=== PATIENT | male | born 1945 | race Caucasian/White ===

== ENCOUNTER → 2024-08-12 11:49 | Outpatient (REF) | payer MEDICARE, SELFPAY | LOC: RAD 11:49 | PROVIDERS: ATTENDING PHYSICIAN Surgery Vascular Surgery; FAMILY PHYSICIAN Family Medicine | DX: I71.42 Juxtarenal abdominal aortic aneurysm, without rupture (principal) | CPT/HCPCS: 74174; Q9967 ==

== ENCOUNTER 2024-12-23 08:35 | Inpatient (IN) | payer MEDICARE, SELFPAY ==
[2024-12-16 09:19] VITALS: BMI 29.4
[2024-12-16 10:19] LABS: Hematocrit 40.2 % (39.0-52.0); Hemoglobin 13.3 g/dL (13.0-18.0); Mean Corp Hgb Conc. 33.1 g/dL (33.0-37.0); Mean Corpuscular Volume 96.9 fL (80.0-94.0); Nucleated Red Blood Cells % 0 % (-); Platelet Count 109 10^3/uL (130-400); Red Cell Dist. Width 14.4 % (11.5-14.5)
[2024-12-16 10:32] LABS: INR 1.05; PT 14.0 Sec (11.4-14.6)
[2024-12-16 10:33] LABS: APTT 28.0 Sec (23.4-35.0)
[2024-12-16 11:15] LABS: Blood Urea Nitrogen 19 mg/dl (9-20); Calcium 9.6 mg/dl (8.4-10.2); Carbon Dioxide 34 mmol/L (22-30); Chloride 99 mmol/L (98-107); Estimated Creatinine Clearance 81 ml/min; Glucose 112 mg/dl (70-99); Potassium 3.6 mmol/L (3.5-5.1); Sodium 138 mmol/L (135-145); eGFR > 60.00
--- NOTE | 2024-12-17 08:46 | PTCARENOTE ---
Patients 12/16 WBC 2.5- Nichelle @ Dr. Chaudhary office notified
[2024-12-23] VITALS (10 sets, daily range): BP systolic 134–161; BP diastolic 87–107; BMI 28.7
--- NOTE | 2024-12-23 09:27 | HP.FOC2 ---
Focused History & Physical
Chief Complaint
HPI:
Chief Complaint: AAA
HPI / Indication for Planned Procedure:
This is an 79-year-old male with significant past medical history for lung cancer, juxtarenal abdominal aortic aneurysm, hypertension, PVCs, atrial fibrillation, pulmonary hypertension, esophageal reflux, diverticulosis, and prostate cancer who
presents today for scheduled fenestrated endovascular aortic aneurysm repair with Dr. Agus Jaime III. Patient denies recent illness, trauma, or hospitalization. Denies chest pain, abdominal pain, nausea, vomiting, fever, chills, shortness of
breath, and loose stools. Patient was last seen in our office on 09/11/2024 for preop evaluation rejection abdominal aortic aneurysm, he was seen by cardiology on and received cardiac clearance. Procedure was delayed due to insurance
approval. He reports he is at his baseline health and offers no complaints.
Relevant Past Medical History: Other (lung cancer, juxtarenal abdominal aortic aneurysm, hypertension, PVCs, atrial fibrillation, pulmonary hypertension, esophageal reflux, diverticulosis, and prostate cancer)
Relevant Social History: Tobacco Use (Former smoker)
Relevant Past Surgical History: Positive for (Prostatectomy 2001, left TKR, colon surgery with reversal of colostomy 2003)
Review of Systems
Review of Pertinent Systems: All Systems Negative
Medication
See Medication form for detailed medications: Yes
Medication List (including Herbals & OTC):
acetaminophen 500 mg tablet (Tylenol Extra Strength) 500 - 1,000 mg PO Q6H PRN pain 12/11/24
apixaban 5 mg tablet (Eliquis) 5 mg PO BID 12/11/24
calcium 600 mg (as carbonate)-vitamin D3 10 mcg (400 unit) tablet (Calcium 600 + D(3)) 2 tab PO DAILY 12/11/24
digoxin 125 mcg (0.125 mg) tablet 125 mcg PO DAILY 12/11/24
diltiazem HCl 90 mg tablet 45 mg PO BID 12/11/24
diphenhydramine HCl 25 mg capsule (Benadryl) 50 mg PO DIRECTED PRN pre op 12/11/24
ezetimibe 10 mg tablet 10 mg PO DAILY 12/11/24
hydrochlorothiazide 25 mg tablet 25 mg PO DAILY 12/11/24
leuprolide acetate (6 month) 45 mg (6 month) subcutaneous syringe (Eligard) 45 mg SC [id number] 12/11/24
losartan 50 mg tablet 50 mg PO DAILY 12/11/24
methylprednisolone 32 mg tablet 32 mg PO DIRECTED pre op 12/11/24
Medications Reviewed: Yes
Allergies and Reactions
Patient has Allergies: Yes
Noted Allergies and Reactions:
Allergy/AdvReac Type Severity Reaction Status Date / Time
Iodinated Contrast Media Allergy Hives Verified 12/11/24 15:39
Penicillins Allergy Hives Verified 12/11/24 15:39
shellfish derived Allergy Hives Verified 12/11/24 15:39
'Pain medicine' Allergy Hives Uncoded 12/11/24 15:39
Pertinent Physical Exam
All Other Systems: Negative
Head/Neck: Normal
Lungs: Other (Bilateral upper lobe clear to auscultation, left lower lobe clear to auscultation, right lower lobe with inspiratory wheeze)
Heart: Normal (Irregular rhythm, no murmurs)
Abdomen: Normal (Nontender nondistended)
Extremities: Normal (Bilateral radial pulse +2 palpable, right DP +1 palpable, left DP +2 palpable)
Neurological: Normal
Diagnosis / Assessment
Assessment: 79-year-old male with juxtarenal abdominal aortic aneurysm
Plan / Procedure
Plan: Will proceed with scheduled fenestrated endovascular aortic aneurysm repair as scheduled with Dr. Agus Jaime III.
Anesthesia/Sedation to be done by Anesthesia Provider: Yes
[2024-12-23] MEDS: BACTROBAN NASAL 1 GRAM NASAL (10:06)
[2024-12-23] MEDS: NSS 500 IV (10:07)
[2024-12-23] MEDS: PERIDEX 0.12% ORAL RINSE 15 ML PO (10:07)
[2024-12-23] MEDS: VANCOCIN 530 MG IV (10:13)
--- NOTE | 2024-12-23 11:53 | W.SUR.PREOP ---
Pre-Operative Surgical Note
-
I have examined this patient prior to the performance of the scheduled procedure.
The patient's condition is unchanged from the time of the current History and
Physical and the patient is able to undergo the scheduled procedure.
[2024-12-23 12:29] LABS: ACT-LR - POC 269 Seconds (116-155)
--- NOTE | 2024-12-23 13:39 | CON.INTV ---
Consultation
Consultation Request
Date/Time Consultation Requested: 12/23/2024-2 PM
Date/Time Consultation Performed: 12/23/2024-2:30 PM
Requesting Provider: Vascular surgery
Performing Provider: Dr. Blake
Reason for Consultation: Postop critical care management
Medical History
-
Chief Complaint: PAD
History of Present Illness:
79-year-old former smoking male with a history of prostate cancer/prostatectomy, colon surgery/colostomy reversal, lung cancer, AAA, hypertension, atrial fibrillation, pulm hypertension, GERD, diverticulosis who had aortic aneurysm and underwent
fenestrated endovascular aortic aneurysm repair-felt dyeing machine tender consulted for postoperative critical care management 12/23/2024. Patient is seen postoperatively in the surgical intensive care unit. He is lying flat without complaints of shortness of
breath, chest pain, chest congestion, productive cough, abdominal pain offers no complaints of nausea, focal weakness and has good peripheral pulses.
Past Medical History
Past Medical History: None (Former smoker. Prostate cancer/prostatectomy 2001. Lung cancer. Abdominal aortic aneurysm. Hypertension. PVCs. Atrial fibrillation. Pulm hypertension. GERD. Diverticulosis. Colon surgery/reversal colostomy 2003.
Left TKR)
Social History
Tobacco: Former Smoker
Drug: None
Living: With Family
Occupational Exposures: No known asbestos exposure
Environmental Exposures: No known tuberculosis exposure
Family History
Family History: Reviewed & Not Pertinent
Allergies / Home Medications
Allergies
Allergy/AdvReac Type Severity Reaction Status Date / Time
Iodinated Contrast Media Allergy Hives Verified 12/11/24 15:39
Penicillins Allergy Hives Verified 12/11/24 15:39
shellfish derived Allergy Hives Verified 12/11/24 15:39
'Pain medicine' Allergy Hives Uncoded 12/11/24 15:39
Home Medications
�Medication �Instructions �Recorded �Confirmed �Last Taken �Type
acetaminophen 500 mg tablet 500 - 1,000 mg PO Q6H PRN pain 12/11/24 12/23/24 12/22/24 15:00 History
(Tylenol Extra Strength)
apixaban 5 mg tablet (Eliquis) 5 mg PO BID 12/11/24 12/23/24 12/19/24 18:00 History
calcium 600 mg (as 2 tab PO DAILY 12/11/24 12/23/24 12/16/24 08:00 History
carbonate)-vitamin D3 10 mcg (400
unit) tablet (Calcium 600 + D(3))
digoxin 125 mcg (0.125 mg) tablet 125 mcg PO DAILY 12/11/24 12/23/24 12/23/24 06:00 History
diltiazem HCl 90 mg tablet 45 mg PO BID 12/11/24 12/23/24 12/23/24 06:00 History
diphenhydramine HCl 25 mg capsule 50 mg PO DIRECTED PRN pre op 12/11/24 12/23/24 12/23/24 10:13 History
(Benadryl)
ezetimibe 10 mg tablet 10 mg PO DAILY 12/11/24 12/23/24 12/22/24 08:00 History
hydrochlorothiazide 25 mg tablet 25 mg PO DAILY 12/11/24 12/23/24 12/22/24 08:00 History
leuprolide acetate (6 month) 45 mg 45 mg SC [id number] 12/11/24 09/19/24 08:00 History
(6 month) subcutaneous syringe
(Eligard)
losartan 50 mg tablet 50 mg PO DAILY 12/11/24 12/23/24 12/22/24 08:00 History
methylprednisolone 32 mg tablet 32 mg PO DIRECTED pre op 12/11/24 12/23/24 12/23/24 07:45 History
Review of Systems
-
Unable to Obtain full review of systems at this time due to: Other (Per HPI)
Vitals / Labs / Diagnostic Testing
Vital Signs
Temp Pulse Resp BP Pulse Ox
97.3 F 91 22 155/107 95
12/23/24 10:20 12/23/24 10:30 12/23/24 10:30 12/23/24 10:26 12/23/24 10:30
Lab Data
12/16/24 09:27
12/16/24 09:27
Diagnostic Testing:
Physical Exam
-
Exam:
Well-nourished and well-developed in no apparent distress
HEENT-atraumatic, normocephalic
Neck-supple, no JVD, no bruit
Heart-regular rate and rhythm-no murmurs, rubs or gallops
Chest-clear to auscultation, no wheezes, crackles
Back-no tenderness
Abdomen-soft, nontender, nondistended, no hepatosplenomegaly
Extremities-no cyanosis, clubbing, edema and good peripheral pulses
Integument-intact, no rashes, lesions or ecchymosis
Neurology-alert and oriented, nonfocal motor and sensory exam
Assessment
-
79-year-old former smoking male with a history of prostate cancer/prostatectomy, colon surgery/colostomy reversal, lung cancer, AAA, hypertension, atrial fibrillation, pulm hypertension, GERD, diverticulosis who had aortic aneurysm and underwent
fenestrated endovascular aortic aneurysm repair-felt dyeing machine tender consulted for postoperative critical care management 12/23/2024.
AAA status post FEVAR-12/23/2024-Dr. Jaime
Mild leukopenia-WBCs 2.5
Mild hyperglycemia
Conditions present prior to admission:
Former smoker.
Prostate cancer/prostatectomy 2001.
History of lung cancer.
Abdominal aortic aneurysm.
Hypertension.
PVCs.
Atrial fibrillation.
Pulm hypertension.
GERD.
Diverticulosis.
Colon surgery/reversal colostomy 2003. Left TKR
Plan
Postoperative surgical intensive care unit monitoring
Supplemental oxygen as needed
Incentive spirometry
Aspiration precautions
Nebulizers if needed-currently not bronchospastic
Neuro and vascular checks per protocol
Monitor blood pressure/perfusion pressures and pulses closely
Pressors if needed
Vascular surgery following-correspondence and operative notes reviewed
DVT prophylaxis-on subcu heparin
Early nutrition
Early mobilization
Critical care statement: A total of 55 minutes of critical care time was provided for this patient today. This includes management of unstable vital signs, evaluation of the patient at bedside, reviewing the patient's pertinent medical records
including radiographs, microbiology, laboratory evaluations, and discussion with primary team, consultants, pharmacy, nutrition, physical therapy, case management, charge nurse, critical care nursing, and respiratory therapy.
Diagnostic data:
Chest x-ray 06/10/2008-NAD
Chest x-ray 11/09/2024-NAD, mild hyperinflation
Data Reviewed
-
EKG: Report reviewed by me
Radiology: Report reviewed by me
CT Scan: Report reviewed by me
Ultrasound: Report reviewed by me
Labs: Labs reviewed by me and Discussed with Physician
Old Records: Requested
Critical Care Time (in minutes): 55
[2024-12-23 13:40] LABS: ACT-LR - POC 247 Seconds (116-155)
[2024-12-23 14:42] LABS: ACT-LR - POC 265 Seconds (116-155)
[2024-12-23 14:58] LABS: B.E. - POC 1.3 mmol/L; Glucose - POC 148 mg/dl (70-99); HCO3 - POC 26 mmol/L (21-28); Hematocrit - POC 29 % PCV (42-52); Hemodilution- POC Yes; Hemoglobin Calculated - POC 10.0; Ionized Calcium - POC 1.12 mmol/L (1.15-1.33); Lactate - POC 0.79 mmol/L (0.36-0.75); O2 Saturation %Calculated-POC 99.7 % (94-98); PCO2 - POC 42 mmHg (35-48); PO2 - POC 209 mmHg (83-108); Potassium - POC 3.5 mmol/L (3.5-5.1); Sodium - POC 141 mmol/L (136-145); Specimen Type - POC Arterial; pH - POC 7.40 (7.35-7.45)
--- NOTE | 2024-12-23 15:35 | W.SUR.POST ---
Surgical Immediate Post Op
Note
Pre Op Diagnosis: Abdominal aortic aneurysm
Post Op Diagnosis: Abdominal aortic aneurysm
Procedure Performed: Fenestrated endovascular aortic aneurysm repair
Primary Surgeon: Agus Jaime MD
Secondary Surgeons: Raj Paulino MD PhD
Anesthesia: General - per anesthesia
Estimated Blood Loss: 200 cc
Fluids: Per anesthesia
Drains/Shunts: None
Specimens/Cultures: None
Doppler/Duplex/Angio (Y/N): Angio
Complications: None
Operative Findings: Bilateral groin access and FEVAR with left iliac branched stent and right common iliac stent with bilateral renal stents (extended on right).
[2024-12-23 15:48] LABS: Hematocrit 33.4 % (39.0-52.0); Hemoglobin 11.3 g/dL (13.0-18.0); Mean Corp Hgb Conc. 33.8 g/dL (33.0-37.0); Mean Corpuscular Volume 96.0 fL (80.0-94.0); Red Cell Dist. Width 14.3 % (11.5-14.5)
[2024-12-23] MEDS: PLAVIX 300 MG PO (15:53)
[2024-12-23 15:56] LABS: Blood Urea Nitrogen 22 mg/dl (9-20); Calcium 8.2 mg/dl (8.4-10.2); Carbon Dioxide 28 mmol/L (22-30); Chloride 104 mmol/L (98-107); Estimated Creatinine Clearance 106 ml/min; Glucose 152 mg/dl (70-99); Potassium 3.9 mmol/L (3.5-5.1); Sodium 135 mmol/L (135-145); eGFR > 60.00
[2024-12-23 16:28] LABS: Platelet Count 78 10^3/uL (130-400)
[2024-12-23] MEDS: CARDENE 200 IV (16:37)
[2024-12-23] MEDS: NSS 1000 IV (16:37)
[2024-12-23] MEDS: TYLENOL 650 MG PO (17:18)
[2024-12-23] MEDS: CARDIZEM 45 MG PO (17:22)
--- NOTE | 2024-12-23 17:35 | PTCARENOTE ---
Received pt from PACU s/p FEVAR. Assessment as noted. HTN noted above parameters. Cardene gtt infusing. Bilat groin access sites closed with derm glue, soft to palpation, Bilat petal pulses present to palp. C/O pain 10/10 to right thigh but only
will take tylenol at this time. NSS at 80cc/hr. Oriented to room, and daughter at bedside.
[2024-12-23] MEDS: DILAUDID 0.5 MG IV (18:12)
[2024-12-23] MEDS: ROXICODONE 5 MG PO (19:28)
--- NOTE | 2024-12-23 20:00 | PTCARENOTE ---
Resumed care of pt this evening. Received pt on cardene gtt infusing at 5mg/hr via left peripheral IV site. Neurological and neurovascular checks performed w/ dayshift RN and were unchanged from previous assessment. Pt can move all 4 extremities,
denies numbness/tingling, has adequate cap refill, and lower extremities are warm upon palpation. Surgical sites, B/L groin, is SERGIO w/ surgical adhesive present. Surrounding skin of surgical sites have some mild ecchymosis otherwise C/D/I. No signs
of hematoma formation observed by this RN.
--- NOTE | 2024-12-23 20:43 | OR.RPT ---
Operative Report
Operative Report
DATE OF OPERATION: 12/23/2024
Pre Op Diagnosis:
1. Juxtarenal abdominal aortic aneurysm
2. Common iliac artery aneurysms
Post Op Diagnosis:
1. Juxtarenal abdominal aortic aneurysm
2. Common iliac artery aneurysms
Procedure:
1. Percutaneous fenestrated aortic stent graft repair of juxtarenal abdominal aortic aneurysm:
[facility] P-2-32-109, scallop fenestration for SMA, bilateral renal fenestrations
[facility] D- 12 -28-76 distal main body
ZSLE 24-90 RIGHT iliac extension
ZSLE 16-90 LEFT iliac bridge extension to ZBIS device
2. Repair of left common iliac artery aneurysm using [employer] ZBIS device:
DRVV-45-40-US (8 mm x 38 mm iCast into left internal iliac artery)
3. Bilateral renal artery stenting for fenestrated stent graft repair (6 mm x 38 mm iCAST left renal artery; overlapping 7 mm x 22 mm iCAST right renal artery, post-dilated proximal bilaterally to 10 mm)
3. Ultrasound-guided percutaneous femoral access, bilateral
4. Bilateral Proglide closure of femoral artery access
Surgeon: Agus Jaime III, MD
Feed Inspection Supervisor: Raj Paulino MD PhD PGY-7
Anesthesia: General
Complications: None
History and Indications for Procedure: Large juxtarenal abdominal aortic aneurysm with common iliac artery aneurysms.
Procedure in Detail: Dae Schaefer was correctly identified and placed supine on the operating table. After adequate induction of anesthesia the abdomen, pelvis and bilateral groins were positioned, prepped and draped in the usual sterile fashion.
Preoperative antibiotics were administered. A timeout procedure was performed with the nursing and anesthesia staff confirming the patient�s identity as well as the nature and laterality of the procedure.
Under ultrasound guidance, bilateral femoral artery 5Fr sheath access was obtained using a micropuncture technique. The arteries were patent on ultrasound. Ultrasound images of the femoral arteries were saved to the medical record. A pre-close
technique was performed bilaterally with 2 offset Proglide closure devices. The sutures were secured and tucked under surgical towels for use at the end of the case. Bilateral 8 Fr sheaths were replaced over Bentson wires. The patient was
systemically heparinized.
From the left femoral access an KMP catheter and Bentson wire were advanced to the proximal descending thoracic aorta. The wire was exchanged out through the KMP catheter for a Lunderquist wire. From the right femoral access a Bentson wire and KMP
catheter were advanced into the proximal descending thoracic aorta. An 18 Argentine dry seal sheath was then inserted on the right under direct fluoroscopic guidance. The tip was placed in the abdominal aortic aneurysm. A pigtail catheter was then
placed to the level of L1.
The fenestrated stent graft (Zfen-P-2 -32-109) was opened and prepped on the back table. The stent was oriented in the proper position under radiographic guidance outside the body. While maintaining the proper orientation, the fenestrated main body
was advanced over the left femoral Lunderquist wire under radiographic guidance and placed in the appropriate position relative to the bilateral renal artery stents. An aortogram was performed through the pigtail catheter which visualized the
superior mesenteric artery, bilateral renal arteries and the abdominal aortic aneurysm. The pigtail was pulled down into the distal aneurysm sac. The Zfen main body was then positioned in the desired location and then carefully unsheathed to the
distal end of the stent.
From the right femoral access the fenestrated main body was accessed with a KMP catheter and glidewire. I exchanged out for a Lunderquist. The 18 Fr dry Seal sheath was then carefully advanced into the fenestrated main body graft. Using a Van Schie
4 catheter and a glidewire the right renal artery was accessed. The glide wire was exchanged out for a Avalos wire. We performed an arteriogram to confirm proper positioning in the renal artery. A 7 Fr Giuseppe sheath was advanced through the right
renal fenestration and into the twenty[place]nine [place] renal artery.
Through a separate access in the Dry Seal sheath and using a Van Schie 4 catheter and a glidewire the left renal artery was accessed. The glide wire was exchanged out for a Aavlos wire. We performed an arteriogram to confirm proper positioning in the
renal artery. The 7 Fr Giuseppe sheath was advanced through the left renal fenestration and into the [place] renal artery. A 6 mm x 38 mm iCast was then advanced over the wire and placed across the fenestration still inside the sheath.
Following successful cannulation of the renal artery fenestrations I then completed the deployment of the fenestrated main body with release of the diameter reducing wires and release of the top cap. The top cap was then carefully recaptured under
radiographic guidance and the delivery system carefully removed over the Lunderquist wire.
A Coda balloon was then inserted on the left and the proximal seal zones of the Zfen main body were profiled with the Giuseppe sheaths in position. The Coda was then removed over the wire.
Deployment of the iCast stents across the renal fenestrations were completed one at a time as follows: The renal fenestration markers on each side were 'closed' by adjusting the C-arm obliquity. One at a time the Giuseppe sheaths were then retracted to
fully expose the iCast stent. The stent was properly positioned across the fenestration under magnification views and deployed by inflating the balloon to nominal pressure. The Giuseppe sheath was re-advanced into the iCast to 'swallow' the balloon as
it was deflated. A 6 mm x 38 mm iCAST was used in the left renal artery. 2 overlapping 7 mm x 22 mm iCAST's were used for the right renal artery. A 10 mm x 20 mm angioplasty balloon was then positioned in the proximal portion of the iCast. The
sheath was retracted and the balloon inflated while maintaining gentle forward pressure to post-dilate the proximal end of the iCast. The sheath was once again re-advanced into the stent by swallowing the balloon as it deflated. The Giuseppe sheaths
were each left in place inside the iCasts while the ZBIS device was introduced.
The Zfen sheath was retracted in a retrograde iliac arteriogram was performed to visualize the iliac bifurcation. The sheath was removed. The ZBIS 12-45-41-US device was properly oriented under fluoroscopy outside the body. The device was then
loaded on the left femoral Lunderquist wire and brought into the desired position. The bilateral Avalos wires and Ansell sheaths were removed from the renal arteries bilaterally. The 18 Argentine dry seal sheath was pulled back to the aortic
bifurcation. The snare device was inserted through the 18 Argentine sheath and deployed in the distal abdominal aortic aneurysm. The ZBIS device was partially unsheathed to visualize the catheter tip. A Glidewire was inserted through the catheter
port and snared from the contralateral 18 Argentine sheath. The wire was pulled out of the 18 Argentine sheath, thereby establishing up and over femorofemoral wire access. The ZBIS device was unsheathed to reveal the internal iliac branch. An 8 Argentine
70 cm sheath was then loaded on the right femoral Glidewire. With tension on the Glidewire from both sides the 8 Argentine sheath was advanced up and over from the right and into the iliac branch device. Using a separate Glidewire access and the 8
Argentine sheath I was able to select the left internal iliac artery under roadmap guidance and advanced the wire into a distal branch. I exchanged out for a Avalos wire through a Quickcross catheter. An arteriogram was performed under magnification
view through the 8 Argentine sheath. Over the Avalos wire I then advanced an 8 mm x 38 mm iCAST stent. The stent was positioned and deployed in the desired location. While the balloon was inflated to nominal pressure the iliac branch stent deployment
was completed. The inner cannula was then pulled back through the iliac branch device. A completion arteriogram demonstrated an excellent result.
The 8 Argentine sheath was pulled back to the aortic bifurcation. Using a KMP and Glidewire we selected the fenestrated main body. The wire and catheter were advanced through and exchanged out for a Lunderquist wire in the proximal descending
thoracic aorta. The distal main body (Zfen-D-12 -28-76) was prepped on the back table and brought to the field. The device was oriented outside the body under radiographic guidance. The 18 Argentine dry seal was removed. Over the Lunderquist wire on
the right the distal main body was introduced carefully under radiographic guidance and positioned properly. The distal main body was then deployed down to the contralateral gate.
From the left femoral sheath the contralateral gate was successfully cannulated using a KMP catheter and a glide wire. A KMP catheter was placed inside the distal main body and advanced to the proximal aspect that was constrained. I confirmed proper
position within the gate and main body by pushing forward on the catheter as I released the proximal constraining mechanism and watching under fluoro for the catheter to jump forward. After confirming the gate cannulation I advanced the catheter and
wire into the proximal descending thoracic aorta and then exchanged out for a Lunderquist. A marker pigtail catheter was placed over the Lunderquist and a retrograde sheath arteriogram was performed. I measured the length for the iliac bridge
extension. The pigtail was removed and over the Lunderquist wire the left iliac bridge extension (ZSLE 16-90) was advanced into the proper position with adequate overlap and preservation of the iliac bifurcation. The stent was deployed without
difficulty.
I then completed the deployment of the distal main body. The delivery system was carefully removed over the wire under radiographic guidance. A retrograde sheath arteriogram was performed on the right side. Over the Lunderquist wire the ipsilateral
limb extension was placed (ZSLE 24-90). Proper overlap was obtained and the stent was deployed without difficulty. The delivery system was then removed over the wire.
A Coda balloon was then advanced one side at a time. The overlap between the fenestrated main body and the distal main body was profiled with the Coda. Both iliac limbs were also profiled including the overlap and the distal seal zones bilaterally.
A pigtail catheter was placed once again. Stiff wires were removed. A completion aortogram demonstrated an excellent technical result. There was brisk flow through the aortic stent and iliac limbs. The renal arteries/stents were widely patent
bilaterally. The superior mesenteric artery filled briskly and was widely patent. The iliac limbs were widely patent. The iliac bifurcations were preserved bilaterally. The iliac branch device on the left was widely patent. The left internal iliac
artery stent was patent. No endoleak was identified.
The Proglide sutures were secured bilaterally after removing the sheaths and wires. Protamine was administered. Additional pressure was applied to the puncture sites bilaterally for 10 minutes. Hemostasis was achieved bilaterally.
Skin glue was applied bilaterally.
The patient tolerated the procedure well and was taken to the PACU in stable condition.
Attestation: I was present and responsible for all documented portions of the above procedure.
Signed:
Agus Jaime III, MD
[facility]
[phone] (gziw)
[2024-12-24] VITALS (15 sets, daily range): BP systolic 106–155; BP diastolic 75–95; BMI 28.8
--- NOTE | 2024-12-24 | PTCARENOTE ---
Cardene infusion turned off per protocol.
[2024-12-24] MEDS: NSS 1000 IV (03:23)
[2024-12-24] MEDS: DILAUDID 0.5 MG IV (03:24)
--- NOTE | 2024-12-24 04:15 | PTCARENOTE ---
Pt c/o 8 out of 10 pain at right upper leg. PRN dose of dilaudid administered by this RN. Post pain assessment, pt scores pain 2 out of 10 and states, 'It feels much better w/ medication.' Neurological and neurovascular checks remain unchanged.
[2024-12-24 04:45] LABS: Hematocrit 32.7 % (39.0-52.0); Hemoglobin 11.1 g/dL (13.0-18.0); Mean Corp Hgb Conc. 33.9 g/dL (33.0-37.0); Mean Corpuscular Volume 97.0 fL (80.0-94.0); Platelet Count 84 10^3/uL (130-400); Red Cell Dist. Width 14.4 % (11.5-14.5)
[2024-12-24 05:12] LABS: INR 1.15; PT 15.0 Sec (11.4-14.6)
[2024-12-24 05:13] LABS: APTT 26.5 Sec (23.4-35.0)
[2024-12-24 05:53] LABS: Blood Urea Nitrogen 29 mg/dl (9-20); Calcium 8.4 mg/dl (8.4-10.2); Carbon Dioxide 26 mmol/L (22-30); Chloride 104 mmol/L (98-107); Estimated Creatinine Clearance 94 ml/min; Glucose 143 mg/dl (70-99); Potassium 4.2 mmol/L (3.5-5.1); Sodium 135 mmol/L (135-145); eGFR > 60.00
[2024-12-24] MEDS: PLAVIX 75 MG PO (07:46)
[2024-12-24] MEDS: COZAAR 50 MG PO (07:46)
[2024-12-24] MEDS: ROXICODONE 5 MG PO (07:46)
--- NOTE | 2024-12-24 07:46 | W.PN.INTV ---
Today's Communication / Plan
Recommendations
Intravenous fluid bolus
Discontinue arterial line
Monitor right thigh pain and consider ultrasound versus CT
If remains stable will be transferred out of ICU-call pulmonary if respiratory issues arise
Assessment
-
79-year-old former smoking male with a history of prostate cancer/prostatectomy, colon surgery/colostomy reversal, lung cancer, AAA, hypertension, atrial fibrillation, pulm hypertension, GERD, diverticulosis who had aortic aneurysm and underwent
fenestrated endovascular aortic aneurysm repair-surgical specialist consulted for postoperative critical care management 12/23/2024.
AAA status post FEVAR-12/23/2024-Dr. Jaime
Mild leukopenia-WBCs 2.5
Mild hyperglycemia
Conditions present prior to admission:
Former smoker.
Prostate cancer/prostatectomy 2001-recurrence 15 years later status post XRT and now on every 6 month hormone therapy
History of lung cancer-? Type-suspect stage 1-2022-[facility]-treated with XRT-no evidence for recurrence
Abdominal aortic aneurysm.
Hypertension.
PVCs.
Atrial fibrillation.
Pulm hypertension.
GERD.
Diverticulosis.
Colon surgery/reversal colostomy 2003. Left TKR
Plan
Hemodynamically and neurovascularly intact
Wean supplemental oxygen
Incentive spirometry encourage
Aspiration precautions
Monitor hemoglobin
Transfuse if needed
Marginal urine output-1 L normal saline bolus
Monitor blood sugars
Insulin supplementation if needed
Neuro and vascular checks per protocol also continue
Vascular surgery closely-correspondence reviewed
Patient complained of some right thigh pain-good pulses
Consider ultrasound or CT thigh if pain persists
DVT prophylaxis recommended
Nutrition
Increase activity/physical therapy
Outpatient oncology follow-up for lung and prostate cancer
Patient can be transferred out of ICU-call pulmonary if respiratory issues arise
Reviewed the patient's pertinent medical records including radiographs, microbiology, laboratory evaluations, and discussion with primary team, consultants, pharmacy, nutrition, physical therapy, case management, charge nurse, critical care
nursing, and respiratory therapy.
Diagnostic data:
Chest x-ray 06/10/2008-NAD
Chest x-ray 11/09/2024-NAD, mild hyperinflation
Subjective Dataa
Subjective Data
Date of Service:
Date of Service: December 24, 2024
Chief Complaint: Lawn Care Specialist Follow Up and Pulmonary Follow Up
Subjective:
No complaints of shortness of breath, chest pain, pleurisy, abdominal pain but complains of right anterior thigh pain
Review of Systems
General: Other (Per HPI)
Objective Data
Data Reviewed
Vital Signs / I&O / Oxygen:
Vital Signs
Temp Pulse Resp BP Pulse Ox
97.6 F 80 22 150/99 98
12/24/24 07:37 12/24/24 06:15 12/24/24 06:15 12/23/24 16:31 12/24/24 06:15
Intake and Output
12/23/24 12/24/24 12/25/24
06:59 06:59 06:59
Intake Total 1332.5 / 1412.5 80 / 80
Output Total 711 / 711
Balance 621.5 / 701.5 80 / 80
SaO2 98
Nasal Cannula flow liters per 2
minute
Physical Exam
General: Respiratory Distress (n) and Comfortable
HEENT: Normocephalic, Anicteric and Moist Mucous Membranes
Cardiovascular: Irregular Rhythm
Respiratory: Wheeze (n), Crackles (n), Rhonchi, Non-Labored Respirations (n), Accessory Resp Muscle Use (n) and Stridor (n)
GI: Soft, Non Distended and Non Tender
Neurology: Awake, Alert and No Motor Deficits
Skin: Warm, Good Color, Cyanosis (n), Jaundice (n) and Rash (n)
Labs/Micro/Reports
Lab Data
12/24/24 04:13
12/24/24 04:13
Laboratory Results
12/24/24
04:13
PT 15.0 H
INR 1.15
APTT 26.5
[2024-12-24] MEDS: ORETIC 25 MG PO (07:47)
[2024-12-24] MEDS: CARDIZEM 45 MG PO ×2 (07:47→20:04)
[2024-12-24] MEDS: ZETIA 10 MG PO (07:47)
[2024-12-24] MEDS: OSCAL 500 + D 1000 MG PO (07:47)
--- NOTE | 2024-12-24 08:05 | W.PN.VS ---
Addendum entered and electronically signed by Vahid Long MD 12/24/24 15:35:
Seen and examined with AEROSPACE PROJECT MANAGER's this morning. This is a late entry. Agree with findings as noted below. Patient was noting some right thigh pain. Exam was unremarkable. Abdomen soft, nondistended, nontender. Groins flat bilaterally. 2+ palpable
femoral pulses bilaterally. 2+ palpable pedal pulses bilaterally. Feet warm. Plan/as discussed and noted below. Will check duplex re: right thigh pain to make sure profundus patent. Follow urine output.
Original Note:
Today's Communication / Plan
-
Patient seen and evaluated at bedside with Dr. Vahid Long, below plan reviewed with attending
Assessment/Plan
-
Assessment: 79-year-old male POD #1 FEVAR
Plan:
Given marginal urine output overnight, will give 1 L bolus, if urine output increases we will then discontinue Jaime catheter
Discontinue arterial line
Continue as needed pain medication, if right thigh pain continues to be persistent or worsens may consider ultrasound versus CTA
Out of bed to chair with progression to ambulation as tolerated
Possible discharge later this afternoon pending patient progression
Subjective Data
-
Date of Service: December 24, 2024
Patient seen and examined at bedside, endorses intermittent right thigh pain. Currently well-managed with current prescribed pain medications. Denies nausea, vomiting, fever, and chills. Tolerating p.o. diet. Additionally endorses discomfort at
Jaime catheter.
Objective Data
-
Vital Signs
Temp Pulse Resp BP Pulse Ox
97.6 F 80 22 150/99 98
12/24/24 07:37 12/24/24 06:15 12/24/24 06:15 12/23/24 16:31 12/24/24 06:15
Intake and Output
12/23/24 12/24/24 12/25/24
06:59 06:59 06:59
Intake Total 1332.5 / 1412.5 160 / 160
Output Total 711 / 711 50 / 50
Balance 621.5 / 701.5 110 / 110
Intake:
IV fluids (Total) 1332.5 / 1412.5 160 / 160
NSS 1170 / 1250 160 / 160
cardene 162.5 / 162.5
Output:
Urine, Jaime 71 / 711
Lab Results
12/24/24 04:13
12/24/24 04:13
Calcium 8.4 mg/dl (8.4-10.2) 12/24/24 04:13
Physical Exam
-
No apparent distress, resting in bed comfortably
No tachycardia
No dyspnea on room air
Abdomen rotund, nondistended, nontender
Bilateral groin sites clean, dry, and Exofin glue intact, no evidence of hematoma or edema, all surrounding compartments soft
Right DP +1, left DP +2, bilateral feet warm
Jaime draining clear yellow urine
[2024-12-24] MEDS: NSS 500 IV (08:10)
--- NOTE | 2024-12-24 11:05 | PTCARENOTE ---
Assumed care of pt. VSS with afib continuing. Supplement O2 removed and SpO2 to 95%. Gabriela removed as instructed by vascular team. Right anterior thigh pain continues, Roxicodone given. Pain relief noted by patient. Pt assisted OOB to chair with
standby assistance. NSS bolus 500cc administered due to borderline UOP.
[2024-12-24] MEDS: LANOXIN 125 MCG PO (12:23)
[2024-12-24 13:00] LABS: Hematocrit 35.8 % (39.0-52.0); Hemoglobin 11.8 g/dL (13.0-18.0); Mean Corp Hgb Conc. 33.0 g/dL (33.0-37.0); Mean Corpuscular Volume 97.0 fL (80.0-94.0); Platelet Count 96 10^3/uL (130-400); Red Cell Dist. Width 14.6 % (11.5-14.5)
[2024-12-24 13:18] LABS: Blood Urea Nitrogen 30 mg/dl (9-20); Calcium 8.8 mg/dl (8.4-10.2); Carbon Dioxide 28 mmol/L (22-30); Chloride 102 mmol/L (98-107); Estimated Creatinine Clearance 94 ml/min; Glucose 128 mg/dl (70-99); Potassium 4.1 mmol/L (3.5-5.1); Sodium 133 mmol/L (135-145); eGFR > 60.00
--- NOTE | 2024-12-24 13:57 | CM ---
Initial assessment completed with patient with in room. Patient lives with his in a 2 story home with no basement, B/B on 2nd with 1/2 bath on 1st, a fold out bed on 1st, 1 step to enter. 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
ambulation, drives. Does have a SPC and RW but does not use. No current in-home services. Has had [facility] in the past for knee replacement. No VA benefits. No psychiatric hospitalizations. No HC-POA. PCP is Dr. Guy Willingham. Pharmacy is [facility] in
[place]. Discharge POC: Anticipate home with no needs.
--- NOTE | 2024-12-24 15:35 | PTCARENOTE ---
Jaime out as ordered. DTV 2009. Pt unsuccessfully attempting to have BM and reported void, no collection device in commode to measure output.
[2024-12-24] MEDS: HEPARIN 5000 UNITS SC (15:49)
[2024-12-24] MEDS: NSS IV (15:49)
--- NOTE | 2024-12-24 16:37 | PTCARENOTE ---
DTV met with multiple small amounts of urine. Attempting to have BM throughout the day bu only + flatus noted. Mild pain reported on R thigh only when asked.
--- NOTE | 2024-12-24 20:00 | PTCARENOTE ---
Resumed care of pt this evening. Neurovascular and neurological checks performed, unchanged from previous shift.
[2024-12-24] MEDS: ELIQUIS 5 MG PO (20:04)
[2024-12-25] VITALS (15 sets, daily range): BP systolic 116–148; BP diastolic 70–106; BMI 29.1
[2024-12-25] MEDS: DILAUDID 0.5 MG IV ×2 (00:23→07:37)
--- NOTE | 2024-12-25 01:00 | PTCARENOTE ---
Pt c/o 8 out of 10 pain at right upper leg (thigh area). PRN dose of IV dilaudid administered by this RN. Post pain assessment, pt was asleep.
--- NOTE | 2024-12-25 04:45 | PTCARENOTE ---
Pt resting comfortably at this point. Q4H neurological and neurovascular checks maintained, unchanged from previous assessments.
[2024-12-25 06:10] LABS: Hematocrit 37.3 % (39.0-52.0); Hemoglobin 12.5 g/dL (13.0-18.0); Mean Corp Hgb Conc. 33.5 g/dL (33.0-37.0); Mean Corpuscular Volume 96.6 fL (80.0-94.0); Platelet Count 93 10^3/uL (130-400); Red Cell Dist. Width 14.7 % (11.5-14.5)
[2024-12-25 06:17] LABS: Blood Urea Nitrogen 30 mg/dl (9-20); Calcium 8.7 mg/dl (8.4-10.2); Carbon Dioxide 30 mmol/L (22-30); Chloride 101 mmol/L (98-107); Estimated Creatinine Clearance 94 ml/min; Glucose 103 mg/dl (70-99); Potassium 4.1 mmol/L (3.5-5.1); Sodium 135 mmol/L (135-145); eGFR > 60.00
--- NOTE | 2024-12-25 07:36 | W.PN.INTV ---
Today's Communication / Plan
Recommendations
Wean oxygen
Increase activity
Ultrasound and possible CT right thigh
Assessment
-
79-year-old former smoking male with a history of prostate cancer/prostatectomy, colon surgery/colostomy reversal, lung cancer, AAA, hypertension, atrial fibrillation, pulm hypertension, GERD, diverticulosis who had aortic aneurysm and underwent
fenestrated endovascular aortic aneurysm repair-dramatic critic consulted for postoperative critical care management 12/23/2024.
AAA status post FEVAR-12/23/2024-Dr. Jaime
Mild leukopenia-WBCs 2.5
Mild hyperglycemia
Conditions present prior to admission:
Former smoker.
Prostate cancer/prostatectomy 2001-recurrence 15 years later status post XRT and now on every 6 month hormone therapy
History of lung cancer-? Type-suspect stage 1-2022-[facility]-treated with XRT-no evidence for recurrence
Abdominal aortic aneurysm.
Hypertension.
PVCs.
Atrial fibrillation.
Pulm hypertension.
GERD.
Diverticulosis.
Colon surgery/reversal colostomy 2003. Left TKR
Plan
Hemodynamically and neurovascularly intact
Wean supplemental oxygen-currently 96% saturation on room air
Incentive spirometry encouraged
Aspiration precautions
Monitor hemoglobin
Transfuse if needed
Blood pressure and urine output improved with IVF
Monitor blood sugars
Insulin supplementation if needed
Neuro and vascular checks per protocol also continue
Continue Plavix and Eliquis
Vascular surgery closely-correspondence reviewed
Patient continues to complain of some right thigh pain-good pulses
Ultrasound and possible CT of right thigh 12/25/24 pending
DVT prophylaxis-on Eliquis
Nutrition
Increase activity/physical therapy
Outpatient oncology follow-up for lung and prostate cancer
If right thigh workup negative patient could be transferred out of ICU-call pulmonary if respiratory issues arise
Reviewed the patient's pertinent medical records including radiographs, microbiology, laboratory evaluations, and discussion with primary team, consultants, pharmacy, nutrition, physical therapy, case management, charge nurse, critical care
nursing, and respiratory therapy.
Diagnostic data:
Chest x-ray 06/10/2008-NAD
Chest x-ray 11/09/2024-NAD, mild hyperinflation
Subjective Dataa
Subjective Data
Date of Service:
Date of Service: December 25, 2024
Chief Complaint: Soup Person Follow Up and Pulmonary Follow Up
Subjective:
Out of bed, still has right thigh pain, minimal right hip pain, no shortness of breath, chest pain or abdominal pain
Review of Systems
General: Other (Per HPI)
Objective Data
Data Reviewed
Vital Signs / I&O / Oxygen:
Vital Signs
Temp Pulse Resp BP Pulse Ox
97.9 F 102 22 138/99 95
12/25/24 05:36 12/25/24 05:30 12/25/24 05:30 12/25/24 05:00 12/25/24 01:00
Intake and Output
12/24/24 12/25/24 12/26/24
06:59 06:59 06:59
Intake Total 1332.5 / 1412.5 2180 / 2180
Output Total 711 / 711 1480 / 1480
Balance 621.5 / 701.5 700 / 700
SaO2 95
Nasal Cannula flow liters per 2
minute
Physical Exam
General: Respiratory Distress (n) and Comfortable
HEENT: Normocephalic, Anicteric and Moist Mucous Membranes
Cardiovascular: Irregular Rhythm
Respiratory: Wheeze (n), Crackles (n), Rhonchi, Non-Labored Respirations (n), Accessory Resp Muscle Use (n) and Stridor (n)
GI: Soft, Non Distended and Non Tender
Neurology: Awake, Alert and No Motor Deficits
Skin: Warm, Good Color, Cyanosis (n), Jaundice (n) and Rash (n)
Labs/Micro/Reports
Lab Data
12/25/24 05:34
12/25/24 05:34
[2024-12-25] MEDS: CARDIZEM 45 MG PO (07:38)
[2024-12-25] MEDS: ZETIA 10 MG PO (07:39)
[2024-12-25] MEDS: ELIQUIS 5 MG PO (07:39)
[2024-12-25] MEDS: COZAAR 50 MG PO (07:39)
[2024-12-25] MEDS: OSCAL 500 + D 1000 MG PO (07:40)
[2024-12-25] MEDS: PLAVIX 75 MG PO (07:40)
[2024-12-25] MEDS: ORETIC 25 MG PO (07:40)
--- NOTE | 2024-12-25 08:02 | W.PN.VS ---
Addendum entered and electronically signed by Vahid Long MD 12/25/24 13:14:
Seen and examined with CLOTH PAINTER. Agree with findings as noted below. No new complaints. Still complains of right thigh discomfort/pain. Exam is unchanged. No clinically significant findings on exam. Good pulsations distally and 2+ femoral pulse in
the bilateral groins. Plan/as discussed and noted below. Duplex to ensure patency of the profunda.
Original Note:
Today's Communication / Plan
-
Patient seen and examined at bedside with Dr. Vahid Long M.D., below plan reviewed attending.
Assessment/Plan
-
Assessment: 79-year-old male POD #2 FE
Plan:
Given right thigh pain continues and patient has IV contrast dye allergy will start with ultrasound to evaluate profounda as possible source of pain if occluded, if anything concerning on ultrasound will then obtain CT
Out of bed to chair with progression to ambulation as tolerated
Continue Plavix and home oral anticoagulation of Eliquis
Possible discharge later this afternoon pending results of ultrasound
Subjective Data
-
Date of Service: December 25, 2024
Patient seen and examined at bedside, continues to endorse pain at right thigh. He does note that it is managed with current pain medication regimen but it is still persistent. Tolerating p.o. diet. Patient reports no difficulty voiding following
Jaime removal.
Objective Data
-
Vital Signs
Temp Pulse Resp BP Pulse Ox
97.9 F 89 22 140/70 95
12/25/24 05:36 12/25/24 07:38 12/25/24 05:30 12/25/24 07:38 12/25/24 01:00
Intake and Output
12/24/24 12/25/24 12/26/24
06:59 06:59 06:59
Intake Total 1332.5 / 1412.5 2180 / 2180
Output Total 711 / 711 1480 / 1480
Balance 621.5 / 701.5 700 / 700
Intake:
Oral fluids 960 / 960
IV fluids (Total) 1332.5 / 1412.5 1220 / 1220
NSS 1170 / 1250 1220 / 1220
cardene 162.5 / 162.5
Output:
Urine, Jaime 711 / 711 260 / 260
Urine, Voided 1220 / 1220
Other:
Number of approximated SMALL 1
amounts of urine
Lab Results
12/25/24 05:34
12/25/24 05:34
Calcium 8.7 mg/dl (8.4-10.2) 12/25/24 05:34
Physical Exam
-
No apparent distress, resting in bed comfortably
No tachycardia
No dyspnea on room air
Abdomen rotund, nondistended, nontender
Bilateral groin sites clean, dry, and Exofin glue intact, no evidence of hematoma or edema, all surrounding compartments soft
Right DP +1, left DP +2, bilateral feet warm
[2024-12-25] MEDS: COLACE 100 MG PO (09:09)
[2024-12-25] MEDS: TYLENOL 650 MG PO (09:26)
--- NOTE | 2024-12-25 09:38 | PTCARENOTE ---
report received, assessments per work list. patient c/o right thigh pain. vascular team in to assess. orders received. right distal pulses confirmed by Doppler, weaker than left. both feet equally warm, no nv deficits per patient. equal sensation.
lungs clear, pulse oximeter 95-98 on room air. abdomen distended, soft. c/o constipation. colace administered. passing flatus. voiding tramaine urine. refused breakfast. 'not hungry'. medicated with Dilaudid with moderate effect. c/o lingering
discomfort. tylenol administered per patient request. call [place] in reach
[2024-12-25] MEDS: ROXICODONE 5 MG PO (10:14)
[2024-12-25] MEDS: LANOXIN 125 MCG PO (11:49)
--- NOTE | 2024-12-25 12:49 | PTCARENOTE ---
reassessed. right thigh discomfort with some improvement after multiple prn medications per MAR. patient states pain is less when sitting in the chair.
--- NOTE | 2024-12-25 14:09 | W.DS.TRANS ---
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
-
Discharge Instructions:
Sleep Apnea Risk Intermediate
Discharge Diagnosis/Procedures Percutaneous fenestrated aortic stent graft
repair of juxtarenal abdominal aortic aneurysm
Diet As tolerated
Activity No strenuous activity
Driving Restrictions No driving for 1 week
Bathing Restrictions OK to Shower
Instructions:
Stand-Alone Forms: Vascular Surg Discharge Instr
Changes to Home Medications: Yes
Discharge Medications:
DC Medications w/original date entered in [employer]
acetaminophen 500 mg tablet (Tylenol Extra Strength) 500 - 1,000 mg PO Q6H PRN pain 12/11/24
apixaban 5 mg tablet (Eliquis) 5 mg PO BID Blood Clot Prevention/Tx 12/11/24
calcium 600 mg (as carbonate)-vitamin D3 10 mcg (400 unit) tablet (Calcium 600 + D(3)) 2 tab PO DAILY Supplement 12/11/24
digoxin 125 mcg (0.125 mg) tablet 125 mcg PO DAILY Heart Disease/Condition 12/11/24
diltiazem HCl 90 mg tablet 45 mg PO BID Heart Disease/Condition 12/11/24
ezetimibe 10 mg tablet 10 mg PO DAILY High Cholesterol 12/11/24
hydrochlorothiazide 25 mg tablet 25 mg PO DAILY Blood Pressure 12/11/24
leuprolide acetate (6 month) 45 mg (6 month) subcutaneous syringe (Eligard) 45 mg SC [id number] HORMONE 12/11/24
losartan 50 mg tablet 50 mg PO DAILY Blood Pressure 12/11/24
clopidogrel 75 mg tablet 75 mg PO DAILY #90 tabs 12/25/24
oxycodone 5 mg tablet 5 mg PO Q6HPRN PRN moderate pain #6 tabs 12/25/24
Home Medication Changes
Added:
clopidogrel 75 mg tablet 75 mg PO DAILY #90 tabs 12/25/24
oxycodone 5 mg tablet 5 mg PO Q6HPRN PRN moderate pain #6 tabs 12/25/24
Pending Results: No
--- NOTE | 2024-12-25 14:09 | W.PN.UPDATE ---
Update Note
Progress Note Update
Patient endorses past improvement to right thigh pain, and ultrasound demonstrates patent profunda artery. Patient continues to endorse tolerating p.o. diet, ambulating, and voiding without issues. Updated attending Dr. Vahid Long M.D. who agrees
patient stable for discharge to home.
--- NOTE | 2024-12-25 14:24 | CM ---
Patient has been medically cleared for discharge to home with no additional skilled services. will transport home.
== END 2024-12-25 15:58 | disposition home or self-care (01) | DRG 269 ==
LOC: ICU 08:35
PROVIDERS: Nurse Practitioner; Nurse Practitioner Acute Care; ADMITTING PHYSICIAN Surgery Vascular Surgery; CONSULT PHYSICIAN Internal Medicine Critical Care Medicine; PRIMARYCARE PHYSICIAN Family Medicine
PROC: 04V03EZ Restriction of Abdominal Aorta with Branched or Fenestrated Intraluminal Device, One or Two Arteries, Percutaneous Approach (ICD-10-PCS; 2024-12-23)
PROC: 04VD3DZ Restriction of Left Common Iliac Artery with Intraluminal Device, Percutaneous Approach (ICD-10-PCS; 2024-12-23)
DX: I71.42 Juxtarenal abdominal aortic aneurysm, without rupture (principal); I10 Essential (primary) hypertension; K21.9 Gastro-esophageal reflux disease without esophagitis; I48.91 Unspecified atrial fibrillation; I27.20 Pulmonary hypertension, unspecified; I49.3 Ventricular premature depolarization; D72.819 Decreased white blood cell count, unspecified; R73.9 Hyperglycemia, unspecified; I72.3 Aneurysm of iliac artery; Z85.118 Personal history of other malignant neoplasm of bronchus and lung; Z85.46 Personal history of malignant neoplasm of prostate; Z87.891 Personal history of nicotine dependence; Z79.01 Long term (current) use of anticoagulants
CPT/HCPCS: 34713; 34846; 36245; 36415; 37236; 37237; 80048; 85025; 85027; 85610; 85730; 86850; 86900; 86901; 93005; 93925; C1725; C1760; C1769; C1874; C1887; C1894; C2628; Q9967

== ENCOUNTER → 2025-02-12 11:50 | Outpatient (REF) | payer MEDICARE, SELFPAY | LOC: RAD 11:50 | PROVIDERS: ATTENDING PHYSICIAN Registered Nurse; FAMILY PHYSICIAN Family Medicine | DX: I71.42 Juxtarenal abdominal aortic aneurysm, without rupture (principal) | CPT/HCPCS: 74174; Q9967 ==